=== PATIENT | female | born 1985 | race Caucasian/White ===

== ENCOUNTER 2016-07-10 16:58 | Emergency (ER) | payer OTHER ==
[2016-07-10] MEDS ORDERED: IPRATROPIUM-ALBUTEROL 3 ML NEB INHALATION STA (18:38)
[2016-07-10] MEDS ORDERED: SODIUM CHLORIDE 0.9% 1,000 ML IV ONE (18:38)
[2016-07-10] MEDS ORDERED: methylPREDNISolone SOD SUCCI 125 MG/2 ML VIAL IV STA (18:38)
[2016-07-10 19:15] LABS: Basophils # (A) 0.1 k/uL (0-0.2); Basophils % (A) 1 %; CH 31.6; CHCM 32.6; Eosinophils # (A) 0.1 k/uL (0-0.7); Eosinophils % (A) 1 %; HCT 44.2 % (34.0-46.0); HDW 2.12; HGB 14.2 gm/dL (11.4-16.0); Luc # (Auto) 0.32; Luc % (Auto) 2; Lymphocytes # (A) 4.8 k/uL (1.0-4.8); Lymphocytes % (A) 29 %; MCH 31.2 pg (25.0-35.0); MCV 97.2 fL (80.0-100.0); Mean Platelet Volume 6.7; Monocytes # (A) 0.6 k/uL (0-1.0); Monocytes % (A) 4 %; Neutrophils # (A) 10.5 k/uL (1.3-7.7); Neutrophils % (A) 64 %; RBC 4.55 m/uL (3.80-5.40); RDW 13.7 % (11.5-15.5); WBC 16.5 k/uL (3.8-10.6); WBC (Perox) 16.57
[2016-07-10 19:22] LABS: Anion Gap 11 mmol/L; Blood Urea Nitrogen 21 mg/dL (7-17); Calcium 9.5 mg/dL (8.4-10.2); Carbon Dioxide 23 mmol/L (22-30); Chloride 107 mmol/L (98-107); Glucose 93 mg/dL (74-99); Non-African American GFR(MDRD) >60 (>60 ml/min/1.73 sqM); Potassium 4.3 mmol/L (3.5-5.1); Sodium 141 mmol/L (137-145)
--- NOTE | 2016-07-10 19:44 | XR ---
EXAMINATION TYPE: XR chest 2V DATE OF EXAM: 07/10/2016 7:12 PM COMPARISON: NONE HISTORY: Cough and congestion TECHNIQUE: Frontal and lateral views of the chest are obtained. FINDINGS: There is no focal air space opacity, pleural effusion, or pneumothorax seen. The cardiac silhouette size is within normal limits. The osseous structures are intact. IMPRESSION: No acute cardiopulmonary process.
--- NOTE | 2016-07-10 20:34 | ED ---
General Adult HPI - General Chief complaint: Syncope Stated complaint: Syncope,Cough Source: patient, family Mode of arrival: wheelchair Limitations: no limitations - History of Present Illness Initial comments: 31-year-old female presenting for evaluation of 4 days of cough and shortness of breath with associated fevers chills and mild nausea and vomiting. She was seen by her primary care physician Dr. Agee who diagnosed her with pneumonia and put her on Levaquin. He also gave her a course of steroids. Patient states there was also an episode of syncope when she got up quickly from her chair and became lightheaded and fell backwards. She believes she had loss of consciousness but denies any injuries. - Related Data Home Medications Medication Instructions Recorded Confirmed Albuterol Inhaler [Ventolin Hfa 2 puff INHALATION RT-QID PRN 07/10/16 07/10/16 Inhaler] Levofloxacin [Levaquin] 500 mg PO DAILY 07/10/16 07/10/16 Levonorgestrel-Ethin Estradiol 1 tab PO DAILY 07/10/16 07/10/16 [Setlakin 0.15 mg-0.03 mg Tab] methylPREDNISolone [Medrol Dose See Taper PO DAILY 07/10/16 07/10/16 Pack] Allergies Allergy/AdvReac Type Severity Reaction Status Date / Time No Known Allergies Allergy Verified 07/10/16 19:21 Review of Systems ROS Statement: Those systems with pertinent positive or pertinent negative responses have been documented in the HPI. ROS Other: All systems not noted in ROS Statement are negative. Constitutional: Reports: fever, chills Eyes: Denies: eye pain, eye discharge ENT: Reports: congestion. Denies: ear pain, throat pain, dental pain Respiratory: Reports: cough, dyspnea, wheezes. Denies: hemoptysis, stridor Cardiovascular: Denies: chest pain, palpitations, dyspnea on exertion, orthopnea , edema, syncope Endocrine: Reports: fatigue. Denies: polydipsia, polyuria Gastrointestinal: Reports: nausea, vomiting. Denies: abdominal pain, diarrhea, constipation, hematemesis Genitourinary: Denies: urgency, dysuria Musculoskeletal: Denies: back pain, arthralgia, myalgia Skin: Denies: rash, lesions, change in color Neurological: Denies: headache, weakness Psychiatric: Denies: anxiety, depression Hematological/Lymphatic: Denies: easy bleeding, easy bruising Past Medical History Past Medical History: Asthma History of Any Multi-Drug Resistant Organisms: MRSA Date of last positivie culture/infection: THIGH MDRO Source:: 2011 Additional Past Surgical History / Comment(s): D/C Past Psychological History: No Psychological Hx Reported Smoking Status: Current every day smoker Past Alcohol Use History: Rare Past Drug Use History: None Reported General Exam Limitations: no limitations General appearance: alert, in no apparent distress Head exam: Present: atraumatic, normocephalic, normal inspection Eye exam: Present: normal appearance, PERRL, EOMI. Absent: scleral icterus, conjunctival injection, periorbital swelling ENT exam: Present: normal exam, mucous membranes moist Neck exam: Present: normal inspection. Absent: tenderness, meningismus, lymphadenopathy Respiratory exam: Present: wheezes. Absent: respiratory distress, chest wall tenderness, accessory muscle use, decreased breath sounds Cardiovascular Exam: Present: regular rate, normal rhythm, normal heart sounds. Absent: systolic murmur, diastolic murmur, rubs, gallop, clicks GI/Abdominal exam: Present: soft, normal bowel sounds. Absent: distended, tenderness, guarding, rebound, rigid Rectal exam: Present: deferred Extremities exam: Present: normal inspection, full ROM, normal capillary refill. Absent: tenderness, pedal edema, joint swelling, calf tenderness Back exam: Present: normal inspection Neurological exam: Present: alert, oriented X3, CN II-XII intact Psychiatric exam: Present: normal affect, normal mood Skin exam: Present: warm, dry, intact, normal color. Absent: rash Course Vital Signs 07/10/16 07/10/16 07/10/16 17:56 19:14 19:35 Temperature 98.7 F Pulse Rate 76 87 87 Respiratory 18 Rate Blood Pressure 127/75 O2 Sat by Pulse 98 Oximetry 07/10/16 20:45 Temperature 98.9 F Pulse Rate 89 Respiratory 16 Rate Blood Pressure 118/57 O2 Sat by Pulse 98 Oximetry EKG Findings - EKG Comments: EKG Findings:: Normal sinus rhythm with sinus arrhythmia and ventricular rate of 66, ROSALINE 132, QRS 88, QT/QTC 382/400. Medical Decision Making - Medical Decision Making 31-year-old female presented for evaluation of 4 days of cough shortness of breath fevers chills with mild nausea and vomiting. She was diagnosed with pneumonia by her primary care physician and given a prescription for Levaquin and prednisone. Upon arrival to the ED she is coughing numerous times and has wheezing bilateral lower lobes. Otherwise her vitals are normal and there are no other acute findings. Labs revealed a mild leukocytosis but chest x-ray shows no acute process. The patient was reevaluated and had resolution of her wheezing and her symptoms have improved. She was informed of these results and through shared decision making it was determined that she would be discharged with instructions to continue taking her Levaquin and prednisone and to follow-up with her primary care physician but to return to this facility if her symptoms should worsen or persist. The patient acknowledged an understanding of this information and agreed with this plan of care. - Lab Data Result diagrams: 07/10/16 18:56 07/10/16 18:56 Lab Results 07/10/16 07/10/16 07/10/16 Range/Units 18:56 18:56 18:56 WBC 16.5 H (3.8-10.6) k/uL RBC 4.55 (3.80-5.40) m/uL Hgb 14.2 (11.4-16.0) gm/dL Hct 44.2 (34.0-46.0) % MCV 97.2 (80.0-100.0) fL MCH 31.2 (25.0-35.0) pg MCHC 32.0 (31.0-37.0) g/dL RDW 13.7 (11.5-15.5) % Plt Count 357 (150-450) k/uL Neutrophils % 64 % Lymphocytes % 29 % Monocytes % 4 % Eosinophils % 1 % Basophils % 1 % Neutrophils # 10.5 H (1.3-7.7) k/uL Lymphocytes # 4.8 (1.0-4.8) k/uL Monocytes # 0.6 (0-1.0) k/uL Eosinophils # 0.1 (0-0.7) k/uL Basophils # 0.1 (0-0.2) k/uL Sodium 141 (137-145) mmol/L Potassium 4.3 (3.5-5.1) mmol/L Chloride 107 (98-107) mmol/L Carbon Dioxide 23 (22-30) mmol/L Anion Gap 11 mmol/L BUN 21 H (7-17) mg/dL Creatinine 0.76 (0.52-1.04) mg/dL Est GFR (MDRD) Af Amer >60 (>60 ml/min/1.73 sqM) Est GFR (MDRD) Non-Af >60 (>60 ml/min/1.73 sqM) Glucose 93 (74-99) mg/dL Calcium 9.5 (8.4-10.2) mg/dL Influenza Type A RNA Not Detected (Not Detectd) Influenza Type B (PCR) Not Detected (Not Detectd) Disposition Clinical Impression: URI (upper respiratory infection), Cough Disposition: HOME SELF-CARE Condition: Stable Instructions: Upper Respiratory Infection (ED), Acute Bronchitis (ED) Referrals: Rere Ornelas MD [Primary Care Provider] - 1-2 days Time of Disposition: 20:34
[2016-07-10 20:47] VITALS: BP 118/57; PULSE 89; RESP 16; TEMP 98.9
== END 2016-07-10 20:47 | disposition home or self-care (01) ==
LOC: EC 16:58
DX: J06.9 Acute upper respiratory infection, unspecified (principal); R55 Syncope and collapse; R11.2 Nausea with vomiting, unspecified; J45.909 Unspecified asthma, uncomplicated; Z87.01 Personal history of pneumonia (recurrent); F17.200 Nicotine dependence, unspecified, uncomplicated; Z79.3 Long term (current) use of hormonal contraceptives; Z79.52 Long term (current) use of systemic steroids
CPT/HCPCS: 99284; 96374; 36415; 94640; 93005; 80048; 85025; 87502; 71020; J2930

== ENCOUNTER 2016-10-28 17:46 | Emergency (ER) | payer OTHER ==
--- NOTE | 2016-10-28 18:28 | ED ---
Female Urogenital HPI - General Chief complaint: Vaginal Bleeding Stated complaint: 1st trimester bleeding Time Seen by Provider: 10/28/16 18:16 Source: patient, RN notes reviewed Mode of arrival: ambulatory Limitations: no limitations - History of Present Illness Initial comments: patient is a 31-year-old female, presents to the emergency room for evaluation of vaginal bleeding. Patient states she thinks she is about 8-10 weeks . Patient states she woke up this morning and had some vaginal spotting with lower abdominal cramping. Patient states she was passing bright red blood. Patient denies any clotting. Patient states she has been experiencing morning sickness. Patient denies any current nausea or vomiting. Patient denies fevers or chills. Patient denies chest pain or shortness of breath. Patient denies pain or burning during urination, trouble urinating or blood in urine. Patient denies any abnormal vaginal discharge or vaginal discomfort. Patient states she has yet followed up with RAIL CAR DRIVER. Patient denies any current confirmed IUP by ultrasound. Last Menstrual Period: 07/25/16 - Related Data Home Medications Medication Instructions Recorded Confirmed Niu-Usfo-Gwjcf Acid 1 cap PO DAILY 10/28/16 10/28/16 [-U Capsule (formulary)] Allergies Allergy/AdvReac Type Severity Reaction Status Date / Time No Known Allergies Allergy Verified 10/28/16 18:21 Review of Systems ROS Statement: Those systems with pertinent positive or pertinent negative responses have been documented in the HPI. ROS Other: All systems not noted in ROS Statement are negative. Past Medical History Past Medical History: Asthma Additional Past Medical History / Comment(s): HEMORRHOIDS, W/ BLEEDING. History of Any Multi-Drug Resistant Organisms: MRSA Date of last positivie culture/infection: THIGH MDRO Source:: 2011 Additional Past Surgical History / Comment(s): D&C. Past Anesthesia/Blood Transfusion Reactions: No Reported Reaction Past Psychological History: No Psychological Hx Reported Smoking Status: Current every day smoker - Past Family History Mother Family Medical History: No Reported History General Exam - General Exam Comments Initial Comments: sitting in exam room, no acute distress. Limitations: no limitations General appearance: alert, in no apparent distress Head exam: Present: atraumatic, normocephalic, normal inspection Eye exam: Present: normal appearance ENT exam: Present: normal exam Neck exam: Present: normal inspection Respiratory exam: Present: normal lung sounds bilaterally. Absent: respiratory distress Cardiovascular Exam: Present: regular rate, normal rhythm, normal heart sounds GI/Abdominal exam: Present: soft, normal bowel sounds. Absent: distended, tenderness, guarding, rebound, rigid External exam: Present: normal external exam Speculum exam: Present: vaginal discharge Expanded Speculum exam: Present: cervical OS closed Extremities exam: Present: normal inspection Back exam: Present: normal inspection Neurological exam: Present: alert, oriented X3, CN II-XII intact, normal gait Psychiatric exam: Present: normal affect, normal mood Skin exam: Present: warm, dry, intact, normal color. Absent: rash Course Vital Signs 10/28/16 17:54 Temperature 98.0 F Pulse Rate 84 Respiratory 20 Rate Blood Pressure 157/64 O2 Sat by Pulse 99 Oximetry Medical Decision Making - Medical Decision Making Patient is a 31-year-old female presents to the emergency room for evaluation of vaginal spotting. Patient is . Patient states she thinks she is about 8 weeks . Serum beta hCG 18,493.8. Patient's blood type is A positive. pole noted on ultrasound per US tech. Patient advised to follow -up with RAIL CAR DRIVER. Patient advised to return for repeat serum beta-hCG. Patient states she understands everything that was discussed with her. Return parameters discussed. Case discussed Dr. Lew. - Lab Data Lab Results 10/28/16 10/28/16 10/28/16 Range/Units 18:45 18:45 18:45 HCG, Quant 33062.8 mIU/mL Trichomonas Ag (Rapid) Negative (Negative) Blood Type A Positive Blood Type Recheck A Pos - Radiology Data Radiology results: image reviewed Disposition Clinical Impression: Threatened Disposition: HOME SELF-CARE Condition: Good Instructions: Threatened Miscarriage (ED) Additional Instructions: Refrain from sexual activity or heavy lifting for the next 7-10 days. Please return to lab for repeat beta hCG in 2 days. Please follow-up with RAIL CAR DRIVER. If any new symptom arises or symptoms worsen, return to ER as soon as possible. Referrals: Rere Ornelas MD [Primary Care Provider] - 1-2 days Preethi Read MD [STAFF PHYSICIAN] - 1-2 days
[2016-10-28 20:53] LABS: Appearance,Urine Clear (Clear); Bacteria,Urine Moderate /hpf; Bilirubin,Urine Negative (Negative); Glucose,Urine (UA) Negative (Negative); Ketones,Urine Trace (Negative); Leukocyte Esterase,Urine Trace (Negative); Mucus,Urine Rare /hpf; Nitrite,Urine Negative (Negative); PH, Urine 5.5 (5.0-8.0); Particle Count 10938; Protein,Urine Negative (Negative); RBC,Urine 1 /hpf (0-5); Specific Gravity,Urine 1.017 (1.001-1.035); UA Billing (MACRO vs. MICRO) MICRO; Urobilinogen,Urine <2.0 mg/dL (<2.0); WBC,Urine 1 /hpf (0-5)
--- NOTE | 2016-10-28 20:53 | US ---
EXAMINATION TYPE: US OB <=14 wks transvag DATE OF EXAM: 10/28/2016 COMPARISON: NONE CLINICAL HISTORY: Pain. EXAM PERFORMED: EXAM MEASUREMENTS: GESTATIONAL AGE / DATING Physician Established: not established yet Dates by LMP: unknown periods irreg. Dates by First Scan: current scan is first scan Dates by Current Scan for: (6 weeks/1 days) EDC: 06/22/17 MATERNAL ANATOMY Uterus: appears wnl Right Ovary: appears to have complex are likely corpus luteal cyst measuring Left Ovary: appears wnl Post CDS / Adnexa: appears wnl Presence of free fluid: no Presence of corpus luteal cyst: possibly on rt measuring Presence of subchorionic bleed: no GESTATION / SURVEY CRL: 0.4 cm (6 weeks/0 days) MSD: 1.5 cm (6 weeks/2 days) Yolk Sac (normal less than 6mm): 0. Heart Rate: 115 bpm Rhythm: Normal IUP: Viable IUP Date of LMP: unknown, irregular Beta HcG (if available): 68907.8 IMPRESSION: The ultrasound gestational age is 6 weeks 1 day. I see no complicating process. The PATRICA is 06/22/2017.
[2016-10-28 21:44] VITALS: BP 111/57; PULSE 72; RESP 16; TEMP 98.5
== END 2016-10-28 21:44 | disposition home or self-care (01) ==
LOC: EC 17:46
DX: O20.0 Threatened abortion (principal); O99.331 Smoking (tobacco) complicating pregnancy, first trimester; F17.200 Nicotine dependence, unspecified, uncomplicated; Z3A.01 Less than 8 weeks gestation of pregnancy; Z79.899 Other long term (current) drug therapy
CPT/HCPCS: 36415; 76801; 76817; 81001; 84702; 86900; 86901; 87070; 87205; 87491; 87591; 87808; 99284

== ENCOUNTER 2016-12-09 21:06 | Emergency (ER) | payer OTHER ==
[2016-12-09] MEDS ORDERED: SODIUM CHLORIDE 0.9% 2,000 ML IV STA (21:36)
[2016-12-09] MEDS ORDERED: METOCLOPRAMIDE 5 MG/ML 2 ML VIAL IVP STA (21:36)
--- NOTE | 2016-12-09 21:40 | ED ---
General Adult HPI - General Chief complaint: Nausea/Vomiting/Diarrhea Stated complaint: 12 wks preg/dehydrated Time Seen by Provider: 12/09/16 21:18 Source: patient, family, RN notes reviewed, old records reviewed Mode of arrival: ambulatory Limitations: no limitations - History of Present Illness Initial comments: Chief complaint and history of present illness this is a 31-year-old female here with family. The patient is a little weeks . This is confirmed that her ENTERTAINMENT MANAGER's office. The patient's having hyperemesis gravidarum. The vomit. And also keep even water down. - Related Data Home Medications Medication Instructions Recorded Confirmed Adw-Fkay-Kpeep Acid 1 cap PO DAILY 10/28/16 12/09/16 [-U Capsule (formulary)] Acetaminophen Tab [Tylenol Tab] 650 mg PO Q6H PRN 12/09/16 12/09/16 Previous Rx's Medication Instructions Recorded Ondansetron Odt [Zofran Odt] 4 mg PO Q8HR PRN #12 tab 12/10/16 Allergies Allergy/AdvReac Type Severity Reaction Status Date / Time No Known Allergies Allergy Verified 12/09/16 21:37 Review of Systems ROS Statement: Those systems with pertinent positive or pertinent negative responses have been documented in the HPI. Review of systems no headache or visual acuity changes no chest pain or shortness of breath. She is nauseated and vomiting denies any diarrhea. No blood in the vomit. No neuro deficits. All systems are reviewed Past medical problems asthma and hemorrhoids. Surgeries D&C. Family history a grandmother had breast cancer. Patient denies ALLERGIES she does smoke on occasion strongly encouraged to stop denies alcohol use occupation Works with [employer] ROS Other: All systems not noted in ROS Statement are negative. Past Medical History Past Medical History: Asthma Additional Past Medical History / Comment(s): HEMORRHOIDS, W/ BLEEDING. History of Any Multi-Drug Resistant Organisms: MRSA Date of last positivie culture/infection: THIGH MDRO Source:: 2011 Additional Past Surgical History / Comment(s): D&C. Past Anesthesia/Blood Transfusion Reactions: No Reported Reaction Past Psychological History: No Psychological Hx Reported Smoking Status: Current every day smoker Past Alcohol Use History: None Reported Past Drug Use History: None Reported - Past Family History Mother Family Medical History: No Reported History General Exam - General Exam Comments Initial Comments: General: The patient is awake and alert, patient is here because of hyperemesis gravidarum. The patient's 11 weeks . Vital signs temp 98.6 pulse 80 respiratory rate 20 pulse ox 90% room air blood pressure 146/81 Eye: Pupils are equal, , extra-ocular movements are intact; there is normal conjunctiva bilaterally. No signs of icterus. Ears, nose, mouth and throat: There are moist mucous membranes Neck: The neck is supple, Cardiovascular: There is a regular rate and rhythm. No murmur, rub or gallop is appreciated. Respiratory: Lungs are clear to auscultation, respirations are non-labored, breath sounds are equal. No wheezes, stridor, rales, or rhonchi. Gastrointestinal: Soft, non-distended, non-tender abdomen without masses or organomegaly noted. There is no rebound or guarding present. No CVA tenderness. Bowel sounds are unremarkable.nausea vomiting all day. Back: no back pain Musculoskeletal: no complaint of numbness tingling or poor balance. Full range of motion upper and lower extremities Neurological: no complaint of any neuro deficits. Skin: no complaint of any rashes. Limitations: no limitations Course Vital Signs 12/09/16 21:13 Temperature 98.6 F Pulse Rate 80 Respiratory 20 Rate Blood Pressure 146/81 O2 Sat by Pulse 98 Oximetry Medical Decision Making - Medical Decision Making medical decision-making. Patient's white count is 13.8 hemoglobin 14 hematocrit 43, potassium 3.6 with a BUN 11 creatinine 0.5 and GFR greater than 60. Glucose 92. Patient did receive a liter and half of fluid and then the IV infiltrated. The patient is taking fluid orally without problems this time. The plan the patient will be placed on Reglan suppositories. Told to call follow up with her ENTERTAINMENT MANAGER. Advance her diet. - Lab Data Result diagrams: 12/09/16 22:56 12/09/16 22:56 Lab Results 12/09/16 12/09/16 Range/Units 22:56 22:56 WBC 13.8 H (3.8-10.6) k/uL RBC 4.50 (3.80-5.40) m/uL Hgb 14.6 (11.4-16.0) gm/dL Hct 43.5 (34.0-46.0) % MCV 96.7 (80.0-100.0) fL MCH 32.5 (25.0-35.0) pg MCHC 33.6 (31.0-37.0) g/dL RDW 13.6 (11.5-15.5) % Plt Count 277 (150-450) k/uL Neutrophils % 75 % Lymphocytes % 16 % Monocytes % 4 % Eosinophils % 3 % Basophils % 1 % Neutrophils # 10.4 H (1.3-7.7) k/uL Lymphocytes # 2.2 (1.0-4.8) k/uL Monocytes # 0.6 (0-1.0) k/uL Eosinophils # 0.4 (0-0.7) k/uL Basophils # 0.1 (0-0.2) k/uL Sodium 136 L (137-145) mmol/L Potassium 3.7 (3.5-5.1) mmol/L Chloride 105 (98-107) mmol/L Carbon Dioxide 20 L (22-30) mmol/L Anion Gap 11 mmol/L BUN 11 (7-17) mg/dL Creatinine 0.50 L (0.52-1.04) mg/dL Est GFR (MDRD) Af Amer >60 (>60 ml/min/1.73 sqM) Est GFR (MDRD) Non-Af >60 (>60 ml/min/1.73 sqM) Glucose 92 (74-99) mg/dL Calcium 9.3 (8.4-10.2) mg/dL Total Bilirubin 0.3 (0.2-1.3) mg/dL AST 20 (14-36) U/L ALT 28 (9-52) U/L Alkaline Phosphatase 31 L (38-126) U/L Total Protein 7.2 (6.3-8.2) g/dL Albumin 4.2 (3.5-5.0) g/dL Disposition Clinical Impression: Hyperemesis arising during Disposition: HOME SELF-CARE Condition: Fair Instructions: Hyperemesis Gravidarum (ED) Additional Instructions: Use Reglan suppositories. Advance fluids and diet. Follow-up with your ENTERTAINMENT MANAGER Prescriptions: Ondansetron Odt [Zofran Odt] 4 mg PO Q8HR PRN #12 tab PRN Reason: Nausea Referrals: Rere Ornelas MD [Primary Care Provider] - 1-2 days Time of Disposition: 00:47
[2016-12-09 23:09] LABS: Basophils # (A) 0.1 k/uL (0-0.2); Basophils % (A) 1 %; CHCM 34.3; Eosinophils # (A) 0.4 k/uL (0-0.7); Eosinophils % (A) 3 %; HCT 43.5 % (34.0-46.0); HDW 2.05; HGB 14.6 gm/dL (11.4-16.0); Luc # (Auto) 0.22; Luc % (Auto) 2; Lymphocytes # (A) 2.2 k/uL (1.0-4.8); Lymphocytes % (A) 16 %; MCH 32.5 pg (25.0-35.0); MCHC 33.6 g/dL (31.0-37.0); MCV 96.7 fL (80.0-100.0); Monocytes # (A) 0.6 k/uL (0-1.0); Monocytes % (A) 4 %; Neutrophils # (A) 10.4 k/uL (1.3-7.7); Neutrophils % (A) 75 %; RDW 13.6 % (11.5-15.5); WBC 13.8 k/uL (3.8-10.6); WBC (Perox) 13.39
[2016-12-09 23:23] LABS: ALT 28 U/L (9-52); AST 20 U/L (14-36); Alkaline Phosphatase 31 U/L (38-126); Anion Gap 11 mmol/L; Blood Urea Nitrogen 11 mg/dL (7-17); Calcium 9.3 mg/dL (8.4-10.2); Carbon Dioxide 20 mmol/L (22-30); Chloride 105 mmol/L (98-107); Glucose 92 mg/dL (74-99); Non-African American GFR(MDRD) >60 (>60 ml/min/1.73 sqM); Potassium 3.7 mmol/L (3.5-5.1); Sodium 136 mmol/L (137-145); Total Bilirubin 0.3 mg/dL (0.2-1.3); Total Protein 7.2 g/dL (6.3-8.2)
[2016-12-10] MEDS ORDERED: ONDANSETRON ODT 4 MG TAB PO STA (00:37)
[2016-12-10] MEDS ORDERED: ONDANSETRON 4 MG ODT STARTER PACK 2 TAB BTL PO STA (00:37)
[2016-12-10 00:48] VITALS: BP 118/77; PULSE 73; RESP 18; TEMP 97.7
== END 2016-12-10 00:54 | disposition home or self-care (01) ==
LOC: EC 21:06
DX: O21.0 Mild hyperemesis gravidarum (principal); O99.331 Smoking (tobacco) complicating pregnancy, first trimester; F17.200 Nicotine dependence, unspecified, uncomplicated; Z3A.11 11 weeks gestation of pregnancy
CPT/HCPCS: 36415; 80053; 85025; 99284; 96374; 96361 ×2; J2765; S0119

== ENCOUNTER 2017-05-09 20:10 | Outpatient (CLI) | payer OTHER ==
[2017-05-09 21:18] VITALS: BP 117/55; PULSE 87; RESP 16; TEMP 97.9
--- NOTE | 2017-06-14 08:29 | P.MSEPDOC ---
Presenting Problems - Arrival Data Date of Arrival on Unit: 05/09/17 Time of Arrival on Unit: 20:15 Mode of Transport: Wheelchair - Complaint OB-Reason for Admission/Chief Complaint: Possible Onset of Labor Comment: contractions 15 mins apart and lower back pain starting at 1000 this AM Medical History - Information : 4 Para: 1 Term: 1 : 0 Abortions: Spontaneous or Elective: 2 Number of Living Children: 1 - Gestational Age Gestational Age by PATRICA (wks/days): 33 Weeks and 2 Days Review of Systems - Review of Systems Constitutional: No problems Breast: No problems ENT: No problems Cardiovascular: No problems Respiratory: No problems Gastrointestinal: No problems Genitourinary: No problems Musculoskeletal: No problems Neurological: No problems Skin: No problems Vital Signs - Temperature Temperature: 97.9 F Temperature Source: Oral - Pulse Right Sitting Brachial Pulse Rate: 87 Pulse Assessment Method: Automatic Cuff - Respirations Respiratory Rate: 16 Oxygen Delivery Method: Room Air O2 Sat by Pulse Oximetry: 98 - Blood Pressure Right Arm Sitting Blood Pressure: 117/55 Blood Pressure Mean: 75 Blood Pressure Source: Automatic Cuff Medical Screen Scoring (Pre) - Cervical Exam Dilation: 1-3 cm = 1 Membranes: Intact - Uterine Contractions Frequency: N/A Duration: N/A Intensity: N/A - Maternal Vital Signs Maternal Temperature: N/A Maternal Blood Pressure: N/A Signs of Preeclampsia: N/A Maternal Respirations: N/A - Pain Assessment Pain Location and Character: Abdomen Pain Scale Used: Numeric (1 - 10) Pain Intensity: 7 Pain Management Goal: 3 Pain Description: *Acute, Cramping Pain Radiation Location: lower back Pain Frequency: Intermittent Pain Duration: 10 Pain Duration Units: Hours Pain Behavior: Vocalization Pain Aggravating Factors: None - Maternal Trauma Maternal Trauma: N/A - Assessment Baseline FHR: 160 Heart Rate - NICHD Category: Category I (Normal) = 0 NST: Reactive Position: N/A Station: N/A - Total Score Total Score (Pre): 1 - Level of Risk Level of Risk: Low (0-5) Physician Notification (Pre) - Physician Notified Physician Notified Date: 05/09/17 Physician Notified Time: 21:06 Physician/Practitioner Notifed:: dr greenberg Spoke With: dr matamoros New Order Received: Yes - Notification Comment Comment: recheck pt's cervix an hour after initial check. if no change, discharge pt home with orders to f/u with her OB within the next 7 days. Disposition - Disposition OB Disposition: Discharge to home, Written follow up instructions reviewed Discharge Date: 05/09/17 Discharge Time: 21:40 I agree with the RN Medical Screening Exam: Yes Risk & Benefit of care provided described in d/c instruction: Yes Diagnosis: FALSE LABOR BEFORE 37 COMPLETED WEEKS OF GEST, SECOND TRI
== END 2017-05-09 21:40 | disposition home or self-care (01) ==
LOC: FBPOP 20:10
PROVIDERS: ATTEND Obstetrics & Gynecology
DX: O47.02 False labor before 37 completed weeks of gestation, second trimester (principal); Z3A.33 33 weeks gestation of pregnancy
CPT/HCPCS: 59025; G0463; 99213

== ENCOUNTER 2017-06-15 09:00 | Inpatient (IN) | payer OTHER ==
[2017-06-15] MEDS ORDERED: METHYLERGONOVINE 0.2 MG/ML 1 ML AMP IM PRN (09:25)
[2017-06-15] MEDS ORDERED: TERBUTALINE 1 MG/ML VIAL SQ PRN (09:25)
[2017-06-15] MEDS ORDERED: CARBOPROST TROMETHAMINE 250 MCG/ML 1 ML AMP IM PRN (09:25)
[2017-06-15] MEDS ORDERED: OXYTOCIN 10 UNIT/ML 1 ML VIAL IM PRN (09:25)
[2017-06-15] MEDS ORDERED: LIDOCAINE 1% (PF) 10 MG/ML (30 ML SDV) SQ PRN (09:25)
[2017-06-15] MEDS ORDERED: OXYTOCIN 20 UNITS/1000 ML NS 1,000 ML IV SCH ×2 (09:30→13:15)
[2017-06-15] MEDS: LACTATED RINGERS 1,000 ML IV SCH ×2 (09:48→10:29)
[2017-06-15 09:51] LABS: Basophils % (A) 0 %; Eosinophils # (A) 0.2 k/uL (0-0.7); Eosinophils % (A) 2 %; HCT 39.5 % (34.0-46.0); HGB 13.1 gm/dL (11.4-16.0); Lymphocytes # (A) 1.9 k/uL (1.0-4.8); Lymphocytes % (A) 17 %; MCH 30.2 pg (25.0-35.0); MCHC 33.3 g/dL (31.0-37.0); MCV 90.6 fL (80.0-100.0); Mean Platelet Volume 7.4; Monocytes # (A) 0.6 k/uL (0-1.0); Monocytes % (A) 5 %; Neutrophils # (A) 8.1 k/uL (1.3-7.7); Neutrophils % (A) 73 %; Platelet Count 322 k/uL (150-450); RBC 4.35 m/uL (3.80-5.40); RDW 13.2 % (11.5-15.5)
[2017-06-15] MEDS ORDERED: BUPIVACAINE (PF) 0.25% 30 ML VIAL ONE (10:09)
[2017-06-15] MEDS ORDERED: fentaNYL (PF) 50 MCG/ML 5 ML AMP ONE (10:09)
[2017-06-15] MEDS ORDERED: SODIUM CHLORIDE 0.9% 100 ML BAG ONE (10:09)
[2017-06-15] MEDS ORDERED: BUPIVACAINE (PF) 0.25% 25 ML, fentaNYL (PF) 200 MCG in SODIUM CHLORIDE 0.9% 71 ML EPIDURAL ONE (10:31)
[2017-06-15 10:47] VITALS: BMI 37.4
--- NOTE | 2017-06-15 10:58 | P.HPOB ---
History of Present Illness H&P Date: 06/15/17 Chief Complaint: Labor at 38-4/7 weeks' This is a 31-year-old 4 para 10-1 woman with an estimated due date of based on 8 week ultrasound. She presents at 38-4/7 weeks gestation in spontaneous active labor. She reports onset of contractions at approximately 6: 30 AM. Upon presentation to labor and delivery triage she has regularly loy and does have spontaneous rupture of membranes at approximately 09 15. Her has been uncomplicated. She does have a history of asthma. Obstetric history she has a term normal spontaneous vaginal delivery in 2009 of an 8 lbs. 15 oz. female. She has to missed AB using 2007 and 2015. Laboratory data: Blood type A positive, antibody screen negative, rubella immune , VDRL nonreactive, hep Meredith surface antigen negative, HIV negative, group B strep negative Review of Systems All systems: negative Past Medical History Past Medical History: Asthma Additional Past Medical History / Comment(s): HEMORRHOIDS, W/ BLEEDING. History of Any Multi-Drug Resistant Organisms: MRSA Date of last positivie culture/infection: THIGH MDRO Source:: 2011 Additional Past Surgical History / Comment(s): D&C. Past Anesthesia/Blood Transfusion Reactions: No Reported Reaction Past Psychological History: No Psychological Hx Reported Smoking Status: Current every day smoker Past Alcohol Use History: None Reported Additional Past Alcohol Use History / Comment(s): SMOKING SINCE 2003, 1/2 PPD. Past Drug Use History: None Reported - Past Family History Mother Family Medical History: No Reported History Medications and Allergies Home Medications Medication Instructions Recorded Confirmed Type Rtv-Yonk-Isoao Acid 1 cap PO DAILY 10/28/16 06/15/17 History [-U Capsule (formulary)] Allergies Allergy/AdvReac Type Severity Reaction Status Date / Time No Known Allergies Allergy Verified 05/09/17 21:05 Exam - Vital Signs Vital signs: Vital Signs Temp Pulse Resp BP Pulse Ox 06/15/17 09:47 97.8 F 88 18 132/74 97 06/15/17 09:08 97.8 F 88 18 132/74 Intake and Output 06/14/17 06/15/17 06/15/17 22:59 06:59 14:59 Other: Weight 102.058 kg Patient Weight 06/16/17 06:59 Weight 102.058 kg Targeted physical exam is performed. This is a visibly uncomfortable and actively laboring female. Her cervix is 6 cm dilated 90% effaced vertex in the -1 station. heart tones are reassuring by external monitoring. She is loy every 1-3 minutes. Results Result Diagrams: 06/15/17 09:45 Abnormal Lab Results - Last 24 Hours (Table) 06/15/17 Range/Units 09:45 WBC 11.0 H (3.8-10.6) k/uL Neutrophils # 8.1 H (1.3-7.7) k/uL Assessment and Plan (1) 38 weeks gestation of Current Visit: Yes Status: Acute Code(s): Z3A.38 - 38 WEEKS GESTATION OF SNOMED Code(s): 46852041 (2) Spontaneous onset of labor Current Visit: Yes Status: Acute Code(s): QRE7950 - SNOMED Code(s): 60661555 (3) Spontaneous rupture of membranes Current Visit: Yes Status: Acute Code(s): FOA1789 - SNOMED Code(s): 930666632 Plan: 31-year-old 4 para 1 woman at 38-4/7 weeks gestation admitted in spontaneous active labor with rupture of membranes. She may receive an epidural anesthetic. heart tones are currently reassuring by external monitoring. She is group B strep negative and Rh+. Anticipate normal spontaneous vaginal delivery.
[2017-06-15] MEDS ORDERED: BENZOCAINE/MENTHOL SPRAY 1 GM/SPRAY AEROSOL TOPICAL PRN (13:07)
[2017-06-15] MEDS ORDERED: diphenhydrAMINE 25 MG CAP PO PRN (13:07)
[2017-06-15] MEDS ORDERED: ACETAMINOPHEN TAB 325 MG TAB PO PRN (13:07)
[2017-06-15] MEDS ORDERED: ZOLPIDEM 5 MG TAB PO PRN (13:07)
[2017-06-15] MEDS ORDERED: diphenhydrAMINE 50 MG CAP PO PRN (13:07)
[2017-06-15] MEDS ORDERED: HYDROCORTISONE 2.5% RECTAL CREAM 30 GM TUBE RECTAL PRN (13:07)
[2017-06-15] MEDS ORDERED: SIMETHICONE 80 MG CHEWABLE PO PRN (13:07)
[2017-06-15] MEDS ORDERED: WITCH HAZEL 1 EACH MED..PAD TOPICAL PRN (13:07)
[2017-06-15] MEDS ORDERED: LANOLIN CREAM 5 GM TUBE TOPICAL PRN (13:07)
--- NOTE | 2017-06-15 13:07 | P.PROBDLV ---
Vaginal Delivery Note - . Vaginal Delivery Note: Findings: Female in the vertex right occiput anterior position with Apgars of 8 at 1 minute and 9 at 5 minutes weighing 8 lbs. 9 oz., 3895 g. Intact, three-vessel cord placenta. First-degree perineal laceration. Complications: Mild shoulder dystocia Delivery summary: This is a 31-year-old 4 para 10-1 woman who presented at 38-4/7 weeks gestation in spontaneous active labor with rupture of membranes. Labor began at approximately 06 30. Following admission she did receive an epidural anesthetic. She reached complete cervical dilation by 1235. She had stable heart tones throughout the first stage of labor. She commenced pushing and when she had progressed to she was repositioned, prepped and draped in the dorsal lithotomy position. The head delivered from the right occiput anterior position and there was immediate "turtle sign". The patient was placed in Tatyana position and the anterior shoulder which was the right shoulder was internally rotated. Suprapubic pressure was undertaken. These 2 maneuvers did free the shoulder. Duration of dystocia was less than 30 seconds. The rest the then delivered rapidly onto the field. The nose and mouth were bulb suctioned. The was placed on the maternal abdomen. The cord was clamped and cut. Apgars were 8 at 1 minute and 9 at 5 minutes. The perineum was inspected and a first-degree laceration was noted. This was infused with lidocaine and repaired with an interrupted azwbrz-ot-nnotc suture of 3-0 Vicryl. An intact, three-vessel cord placenta was then delivered after a 6 minute third stage of labor. Of note she had an approximately 20 minute second stage of labor. Following delivery of the placenta she received Pitocin. The uterus was massaged and was noted to be firm at the level of the umbilicus. The rest of the vagina was inspected and no further lacerations were noted. EBL was approximately 100 mL's. Both mother and infant were doing well post delivery in the room. Infant was noted to be vigorously moving both upper extremities equally.
[2017-06-15] MEDS: IBUPROFEN 600 MG TAB PO PRN ×2 (13:26→21:24)
[2017-06-15 15:40] VITALS: RESP 18
[2017-06-15] MEDS: SENNOSIDES-DOCUSATE SODIUM 1 EACH TAB PO SCH (21:24)
[2017-06-16 05:33] VITALS: TEMP 98.4
[2017-06-16] MEDS: SENNOSIDES-DOCUSATE SODIUM 1 EACH TAB PO SCH (08:00)
[2017-06-16] MEDS: IBUPROFEN 600 MG TAB PO PRN (08:01)
[2017-06-16 08:04] VITALS: BP 124/71; PULSE 85
--- NOTE | 2017-06-16 11:05 | P.DS ---
Providers Date of admission: 06/15/17 09:25 Expected date of discharge: 06/16/17 Attending physician: Chi Arvizu Primary care physician: Stated None - Discharge Diagnosis(es) (1) 38 weeks gestation of Current Visit: Yes Status: Acute (2) Spontaneous onset of labor Current Visit: Yes Status: Acute (3) Spontaneous rupture of membranes Current Visit: Yes Status: Acute (4) Shoulder dystocia, delivered, current hospitalization Current Visit: Yes Status: Acute (5) Normal spontaneous vaginal delivery Current Visit: Yes Status: Acute (6) Perineal laceration with delivery, first degree Current Visit: Yes Status: Acute Hospital Course: This is a 31-year-old 4 now para 20-2 woman who presented in spontaneous active labor at 38+ weeks gestation. Following admission she had spontaneous rupture of membranes. She received an epidural anesthetic. She had an unremarkable first stage of labor. With delivery she did have a mild shoulder dystocia that was resolved within 30 seconds of delivery. She had a liveborn female infant weighing 8 lbs. 9 oz. with Apgars of 8 at 1 minute and 9 at 5 minutes. There was a first-degree perineal laceration which was repaired. Her course was unremarkable. On day #1 She was able to ambulate and void, had minimal lochia and stable vital signs. She was discharged home on day #1 with routine instructions for care and follow-up Patient Condition at Discharge: Good Plan - Discharge Summary New Discharge Prescriptions: New Acetaminophen Tab [Tylenol] 650 mg PO Q4HR PRN tab PRN Reason: Mild Pain Or Fever >= 100.5 Ibuprofen [Motrin] 600 mg PO Q6HR PRN #30 tab PRN Reason: Mild Pain Or Fever >= 100.5 No Action Ety-Ioxp-Mhcka Acid [-U Capsule (formulary)] 1 cap PO DAILY Discharge Medication List Baa-Vtmi-Hwupw Acid [-U Capsule (formulary)] 1 cap PO DAILY [History] Acetaminophen Tab [Tylenol] 650 mg PO Q4HR PRN tab 06/16/17 [Rx] Ibuprofen [Motrin] 600 mg PO Q6HR PRN #30 tab 06/16/17 [Rx] Follow up Appointment(s)/Referral(s): Chi Arvizu MD [STAFF PHYSICIAN] - 6 Weeks Activity/Diet/Wound Care/Special Instructions: Follow-up in the office in 6 weeks . Call with any concerning signs or symptoms including heavy vaginal bleeding, severe abdominal pain, fever greater than 101, swelling or redness of the lower extremities, foul vaginal discharge, or signs of depression. Nothing in the vagina for 6 weeks after delivery, specifically no intercourse. Discharge Disposition: HOME SELF-CARE
== END 2017-06-16 13:54 | disposition home or self-care (01) | DRG 775 ==
LOC: FBPOP 09:00 → 4FBP 09:25
PROVIDERS: ADMIT Obstetrics & Gynecology; ATTEND Obstetrics & Gynecology
PROC: 10E0XZZ Delivery of Products of Conception, External Approach (ICD-10-PCS; principal; 2017-06-15)
PROC: 0HQ9XZZ Repair Perineum Skin, External Approach (ICD-10-PCS; 2017-06-15)
PROC: 00HU33Z Insertion of Infusion Device into Spinal Canal, Percutaneous Approach (ICD-10-PCS; 2017-06-15)
PROC: 3E0R3NZ Introduction of Analgesics, Hypnotics, Sedatives into Spinal Canal, Percutaneous Approach (ICD-10-PCS; 2017-06-15)
DX: O99.334 Smoking (tobacco) complicating childbirth (principal); F17.210 Nicotine dependence, cigarettes, uncomplicated; O70.0 First degree perineal laceration during delivery; O66.0 Obstructed labor due to shoulder dystocia; Z37.0 Single live birth; Z3A.38 38 weeks gestation of pregnancy; Z87.19 Personal history of other diseases of the digestive system; Z86.14 Personal history of Methicillin resistant Staphylococcus aureus infection
CPT/HCPCS: 84112; 85025; 88307; 99213

== ENCOUNTER → 2019-10-20 | Outpatient (CLI) | payer OTHER ==
--- NOTE | 2019-10-20 16:00 | XR ---
EXAMINATION TYPE: XR cervical spine comp DATE OF EXAM: 10/20/2019 COMPARISON: None HISTORY: Neck pain TECHNIQUE: Five-view cervical spine FINDINGS: Foramen are patent. Prevertebral space is normal. Posterior spinal lamellar line is intact. Vertebral body heights are preserved. Disc heights are preserved. There is some straightening of the cervical spine sagittal pain. The odontoid is limited with overlying maxilla. IMPRESSION: 1. No acute osseous abnormality cervical spine
== END | disposition home or self-care (01) ==
LOC: RADXRMAIN 14:52
PROVIDERS: ATTEND Internal Medicine
DX: M54.2 Cervicalgia (principal)
CPT/HCPCS: 72050

== ENCOUNTER 2020-03-06 14:34 | Emergency (ER) | payer OTHER ==
[2020-03-06 15:05] VITALS: RESP 18; TEMP 97.9
[2020-03-06] MEDS ORDERED: IBUPROFEN 600 MG TAB PO STA (15:20)
--- NOTE | 2020-03-06 15:36 | ED ---
Lower Extremity Injury HPI - General Chief Complaint: Extremity Injury, Lower Stated Complaint: Knee Injury Time Seen by Provider: 03/06/20 15:07 Source: patient Mode of arrival: wheelchair Limitations: no limitations - History of Present Illness Initial Comments: Patient is a 34-year-old female presenting to emergency Department with complaints of right knee pain after she fell approximately 2 hours prior to arrival. Patient states she tripped and fell down a couple stairs on her staircase injuring her right knee. Patient states she did not hit her head, no loss of consciousness. She denies any other injuries from this fall. She denies any previous surgeries to her right knee, she does a history of patellar subluxation. She denies any further complaints at this time. Upon arrival to the ER vitals are stable. - Related Data Home Medications Medication Instructions Recorded Confirmed Zud-Ccqd-Trcwe Acid 1 cap PO DAILY 10/28/16 06/15/17 [-U Capsule (formulary)] Previous Rx's Medication Instructions Recorded Acetaminophen Tab [Tylenol] 650 mg PO Q4HR PRN tab 06/16/17 Ibuprofen [Motrin] 600 mg PO Q6HR PRN #30 tab 06/16/17 Allergies Allergy/AdvReac Type Severity Reaction Status Date / Time No Known Allergies Allergy Verified 03/06/20 15:04 Review of Systems ROS Statement: Those systems with pertinent positive or pertinent negative responses have been documented in the HPI. ROS Other: All systems not noted in ROS Statement are negative. Past Medical History Past Medical History: Asthma Additional Past Medical History / Comment(s): HEMORRHOIDS, W/ BLEEDING. History of Any Multi-Drug Resistant Organisms: MRSA Date of last positivie culture/infection: THIGH MDRO Source:: 2011 Additional Past Surgical History / Comment(s): D&C. Past Anesthesia/Blood Transfusion Reactions: No Reported Reaction Past Psychological History: No Psychological Hx Reported Smoking Status: Never smoker Past Alcohol Use History: None Reported Past Drug Use History: None Reported - Past Family History Mother Family Medical History: No Reported History General Exam - General Exam Comments Initial Comments: GENERAL: Patient is well-developed and well-nourished. Patient is nontoxic and in no acute distress. HEAD: Atraumatic, normocephalic. EYES: Pupils equal round and reactive to light, extraocular movements intact, sclera anicteric, conjunctiva are normal. Eyelids were unremarkable. ENT: TMs normal, nares patent, oropharynx clear without exudates. Moist mucous memb ranes. NECK: Normal range of motion, supple without lymphadenopathy or JVD. LUNGS: Unlabored respirations. Breath sounds clear to auscultation bilaterally and equal. No wheezes rales or rhonchi. HEART: Regular rate and rhythm without murmurs, rubs or gallops. ABDOMEN: Soft, nontender, normoactive bowel sounds. No guarding, no rebound. No masses appreciated. : Deferred MUSCULOSKELETAL: Patient has pain with palpation of the anterior and posterior aspect the right knee, she is not able to actively flex the knee, she does have full extension. There is some moderate swelling to the anterior knee compared to the left knee. She is neurovascular intact. There is no warmth or sign of infection. The rest of her extremities are normal. No clubbing or cyanosis. NEUROLOGICAL: Patient is alert and oriented x 3. Motor and sensory are also intact. Cranial nerves II through XII grossly intact. Symmetrical smile. Normal speech, normal gait. PSYCH: Normal mood, normal affect. SKIN: Warm, Dry, normal turgor, no rashes or lesions noted. Limitations: no limitations Course Vital Signs 03/06/20 03/06/20 15:02 16:56 Temperature 97.9 F Pulse Rate 81 70 Respiratory 18 18 Rate Blood Pressure 115/75 130/78 O2 Sat by Pulse 98 98 Oximetry Medical Decision Making - Medical Decision Making Patient is a 34-year-old female here for right knee pain after she fell down a couple stairs. She does have decreased range of motion, some mild swelling to the area. X-rays reveal no acute fractures or dislocations. I do have suspicion for internal derangement of the knee. I recommended icing, comp ression with an Tan wrap, which she does have at home. She can take ibuprofen for discomfort. I will give her orthopedic referral. She is in agreement with this plan of care. She is stable for discharge. Disposition Clinical Impression: Right knee pain Disposition: HOME SELF-CARE Condition: Stable Instructions (If sedation given, give patient instructions): Knee Pain (ED) Additional Instructions: Please return to the Emergency Department if symptoms worsen or any other concerns. Continue to take ibuprofen for discomfort and swelling, ice to the area, elevation. Follow-up with orthopedics as discussed. Is patient prescribed a controlled substance at d/c from ED?: No Referrals: Rere Ornelas MD [Primary Care Provider] - 1-2 days Landon Aguilar DO [Doctor of Osteopathic Medicine] - 1-2 days
--- NOTE | 2020-03-06 16:27 | XR ---
Result: History: Pain status post fall. Comparison: None available. Technique: 3 views of the right knee. Findings: No acute fracture or dislocation is seen. The visualized osseous structures are in anatomic alignmen t. The joint spaces are preserved. There is no significant knee joint effusion. Impression: No acute osseous abnormality.
[2020-03-06 16:57] VITALS: BP 130/78; PULSE 70
== END 2020-03-06 16:58 | disposition home or self-care (01) ==
LOC: EC 14:34
DX: S89.91XA Unspecified injury of right lower leg, initial encounter (principal); W10.9XXA Fall (on) (from) unspecified stairs and steps, initial encounter
CPT/HCPCS: 99283

== ENCOUNTER 2020-04-20 09:15 | Emergency (ER) | payer OTHER ==
[2020-04-20 09:28] VITALS: BP 123/82; PULSE 81; RESP 18; TEMP 98.4
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
== END 2020-04-20 10:21 | disposition home or self-care (01) ==
LOC: EC 09:15
DX: G89.29 Other chronic pain (principal); M25.561 Pain in right knee; F17.200 Nicotine dependence, unspecified, uncomplicated; Z86.14 Personal history of Methicillin resistant Staphylococcus aureus infection; V49.40XA Driver injured in collision with unspecified motor vehicles in traffic accident, initial encounter; Y92.488 Other paved roadways as the place of occurrence of the external cause; Y93.89 Activity, other specified
CPT/HCPCS: 99284

== ENCOUNTER 2020-11-14 17:33 | Emergency (ER) | payer OTHER ==
[2020-11-14 18:07] VITALS: RESP 16; TEMP 97.8
[2020-11-14] MEDS ORDERED: KETOROLAC 15 MG/ML 1 ML VIAL IVP STA (18:18)
[2020-11-14] MEDS ORDERED: SODIUM CHLORIDE 0.9% 1,000 ML IV STA (18:18)
[2020-11-14] MEDS ORDERED: ONDANSETRON 4 MG/2 ML VIAL IVP STA (18:18)
[2020-11-14 19:09] LABS: Basophils # (A) 0.1 k/uL (0-0.2); Basophils % (A) 1 %; Eosinophils # (A) 0.4 k/uL (0-0.7); Eosinophils % (A) 4 %; HCT 45.4 % (34.0-46.0); HGB 15.4 gm/dL (11.4-16.0); Lymphocytes # (A) 2.6 k/uL (1.0-4.8); Lymphocytes % (A) 28 %; MCH 32.1 pg (25.0-35.0); MCHC 33.8 g/dL (31.0-37.0); MCV 94.9 fL (80.0-100.0); Mean Platelet Volume 7.2; Monocytes # (A) 0.6 k/uL (0-1.0); Monocytes % (A) 6 %; Neutrophils # (A) 5.5 k/uL (1.3-7.7); Neutrophils % (A) 59 %; Platelet Count 267 k/uL (150-450); RBC 4.78 m/uL (3.80-5.40); RDW 12.8 % (11.5-15.5); WBC 9.3 k/uL (3.8-10.6)
[2020-11-14 19:16] LABS: ALT 12 U/L (4-34); AST 20 U/L (14-36); African American GFR (CKD) >90 (>60 ml/min/1.73 sqM); Albumin 4.5 g/dL (3.5-5.0); Alkaline Phosphatase 37 U/L (38-126); Amylase 64 U/L (30-110); Anion Gap 10 mmol/L; Blood Urea Nitrogen 16 mg/dL (7-17); Calcium 9.5 mg/dL (8.4-10.2); Carbon Dioxide 23 mmol/L (22-30); Chloride 107 mmol/L (98-107); Glucose 99 mg/dL (74-99); Lipase 110 U/L (23-300); Non-African American GFR(CKD) >90 (>60 ml/min/1.73 sqM); Potassium 3.9 mmol/L (3.5-5.1); Sodium 140 mmol/L (137-145); Total Bilirubin 0.2 mg/dL (0.2-1.3); Total Protein 7.3 g/dL (6.3-8.2)
[2020-11-14 19:22] LABS: Amorphous Sediment,Urine Rare /hpf; Appearance,Urine Clear (Clear); Bilirubin,Urine Negative (Negative); Blood,Urine Negative (Negative); Color,Urine Yellow; Glucose,Urine (UA) Negative (Negative); Ketones,Urine Negative (Negative); Leukocyte Esterase,Urine Trace (Negative); Mucus,Urine Rare /hpf; Nitrite,Urine Negative (Negative); PH, Urine 7.5 (5.0-8.0); Protein,Urine Trace (Negative); RBC,Urine 1 /hpf (0-5); Specific Gravity,Urine 1.029 (1.001-1.035); Squamous Epithelial Cell,Urine 3 /hpf (0-4); Urobilinogen,Urine <2.0 mg/dL (<2.0); WBC,Urine 3 /hpf (0-5)
--- NOTE | 2020-11-14 19:36 | CT ---
EXAMINATION TYPE: CT abdomen pelvis w con DATE OF EXAM: 11/14/2020 COMPARISON: None HISTORY: Right flank pain with nausea. CT DLP: 1949.8 mGycm Automated exposure control for dose reduction was used. CONTRAST: Performed with IV Contrast, patient injected with 100 mL of Isovue 300. Images obtained from the diaphragm to the floor the pelvis with IV contrast. Lung bases are clear. There is no pleural effusion. Heart size is normal. There is no pericardial eff usion. Liver spleen stomach pancreas gallbladder appear normal. The bile ducts are not dilated. There is no adrenal mass. Kidneys show satisfactory contrast opacification. There is no hydronephrosi s. Ureters are not dilated. There is no retroperitoneal adenopathy. Bladder distends smoothly. There is no inguinal hernia. There is no free fluid in the pelvis. Uterus is anteverted. There is IUD in th e uterine fundus. The lumbar vertebra have normal alignment. Disc spaces are normal. There is no comp ression fracture. Posterior elements are intact. The bony pelvis is intact. Hip joints appear normal. Appendix is posterior and appears normal. There is no mesenteric edema. There is no ascites or free air. There is no bowel obstruction. IMPRESSION: Negative CT scan of the abdomen pelvis. Normal appendix.
--- NOTE | 2020-11-14 21:11 | US ---
EXAMINATION TYPE: US transvaginal DATE OF EXAM: 11/14/2020 COMPARISON: CT CLINICAL HISTORY: rule out torsion. R/O torsion per order. Back pain. Hx D and C. Mirena IUD placed 2 018. . TECHNIQUE: Transvaginal (TV). Date of LMP: 2017. EXAM MEASUREMENTS: Uterus: 8.2 x 6.3 x 4.0 cm Endometrial Stripe: 0.32 cm Right Ovary: 4.2 x 2.4 x 2.2 cm Left Ovary: 3.7 x 2.9 x 2.5 cm 1. Uterus: Anteverted Appears very heterogeneous. IUD visualized, appears to be in upper endometri um. 2. Endometrium: No abnormalities seen. 3. Right Ovary: Anechoic areas seen, largest measures: 1.0 x 1.0 x 0.9 cm. 4. Left Ovary: Anechoic areas seen, largest measures: 1.4 x 1.8 x 1.4 cm. Spectral, color and waveform doppler imaging shows arterial and venous flow within the ovaries. 5. Bilateral Adnexa: Appear to be wnl. 6. Posterior cul-de-sac: Appears to be wnl. IMPRESSION: There are simple ovarian cysts. No solid adnexal mass. Normal uterus and endometrium. IUD appears in good position. No evidence of ovarian torsion.
[2020-11-14] MEDS ORDERED: ACET/COD 300 MG/30 MG STARTER PACK 6 TAB BTL PO STA (21:26)
[2020-11-14] MEDS ORDERED: ONDANSETRON 4 MG ODT STARTER PACK 2 TAB BTL PO STA (21:26)
--- NOTE | 2020-11-14 21:27 | ED ---
Back Pain HPI - General Chief Complaint: Back Pain/Injury Stated Complaint: back pain Time Seen by Provider: 11/14/20 18:08 Source: patient Limitations: no limitations - History of Present Illness Initial Comments: Patient is a 35-year-old female that presents to the emergency department complaining of lower abdominal pain with radiation of the back. She noted that she was mildly nauseous upon arrival. She denied any intra-abdominal history or significant past history. She did report that she was diagnosed with endometriosis oligo but has IUD in place. She was in moderate amounts of discomfort and pain while sitting up in bed during the exam interview. She denied any chest pain shortness breath headache vomiting diarrhea constipation fever fatigue chills. - Related Data Home Medications Medication Instructions Recorded Confirmed levonorgestreL [Mirena] 1 device IY [id number] 04/20/20 04/20/20 Allergies Allergy/AdvReac Type Severity Reaction Status Date / Time No Known Allergies Allergy Verified 11/14/20 18:04 Review of Systems ROS Statement: Those systems with pertinent positive or pertinent negative responses have been documented in the HPI. ROS Other: All systems not noted in ROS Statement are negative. Past Medical History Past Medical History: Asthma Additional Past Medical History / Comment(s): HEMORRHOIDS History of Any Multi-Drug Resistant Organisms: MRSA Date of last positivie culture/infection: THIGH MDRO Source:: 2011 Additional Past Surgical History / Comment(s): D&C. Past Anesthesia/Blood Transfusion Reactions: No Reported Reaction Past Psychological History: No Psychological Hx Reported Smoking Status: Current every day smoker Past Alcohol Use History: None Reported Past Drug Use History: None Reported - Past Family History Mother Family Medical History: No Reported History General Exam Limitations: no limitations General appearance: alert, in no apparent distress Head exam: Present: atraumatic, normocephalic, normal inspection Eye exam: Present: normal appearance, PERRL, EOMI. Absent: scleral icterus, conjunctival injection, periorbital swelling Neck exam: Present: normal inspection Respiratory exam: Present: normal lung sounds bilaterally. Absent: respiratory distress, wheezes, rales, rhonchi, stridor Cardiovascular Exam: Present: regular rate, normal rhythm, normal heart sounds. Absent: systolic murmur, diastolic murmur, rubs, gallop, clicks GI/Abdominal exam: Present: soft, tenderness (Bilateral lower abdomen), normal bowel sounds. Absent: distended, guarding, rebound, rigid Extremities exam: Present: normal inspection, full ROM, normal capillary refill. Absent: tenderness, pedal edema, joint swelling, calf tenderness Neurological exam: Present: alert, oriented X3 Psychiatric exam: Present: normal affect, normal mood Skin exam: Present: warm, dry, intact, normal color. Absent: rash Course Vital Signs 11/14/20 18:04 Temperature 97.8 F Pulse Rate 83 Respiratory 16 Rate Blood Pressure 128/84 O2 Sat by Pulse 100 Oximetry Medical Decision Making - Medical Decision Making 35-year-old female complaining of lower abdomen pain with radiation the back. Labs, 1 L normal saline, CT of the abdomen and pelvis, 15 mg of Toradol, 4 mg of Zofran ordered. Labs unremarkable. Computed tomography scan abdomen is unremarkable for any acute process. Given the vague symptoms and negative computed tomography scan ultrasound of the pelvis was ordered. Ultrasound negative for any acute process. Patient could be extremely endometriosis pain. Case discussed with Dr. Everett, patient discharge home with follow-up to PRESCRIPTION CLERK and primary care. - Lab Data Result diagrams: 11/14/20 18:50 11/14/20 18:50 Lab Results 11/14/20 11/14/20 11/14/20 Range/Units 18:50 18:50 18:50 WBC 9.3 (3.8-10.6) k/uL RBC 4.78 (3.80-5.40) m/uL Hgb 15.4 (11.4-16.0) gm/dL Hct 45.4 (34.0-46.0) % MCV 94.9 (80.0-100.0) fL MCH 32.1 (25.0-35.0) pg MCHC 33.8 (31.0-37.0) g/dL RDW 12.8 (11.5-15.5) % Plt Count 267 (150-450) k/uL MPV 7.2 Neutrophils % 59 % Lymphocytes % 28 % Monocytes % 6 % Eosinophils % 4 % Basophils % 1 % Neutrophils # 5.5 (1.3-7.7) k/uL Lymphocytes # 2.6 (1.0-4.8) k/uL Monocytes # 0.6 (0-1.0) k/uL Eosinophils # 0.4 (0-0.7) k/uL Basophils # 0.1 (0-0.2) k/uL Sodium (137-145) mmol/L Potassium (3.5-5.1) mmol/L Chloride (98-107) mmol/L Carbon Dioxide (22-30) mmol/L Anion Gap mmol/L BUN (7-17) mg/dL Creatinine (0.52-1.04) mg/dL Est GFR (CKD-EPI)AfAm (>60 ml/min/1.73 sqM) Est GFR (CKD-EPI)NonAf (>60 ml/min/1.73 sqM) Glucose (74-99) mg/dL Plasma Lactic Acid [place] (0.7-2.0) mmol/L Calcium (8.4-10.2) mg/dL Total Bilirubin (0.2-1.3) mg/dL AST (14-36) U/L ALT (4-34) U/L Alkaline Phosphatase (38-126) U/L Total Protein (6.3-8.2) g/dL Albumin (3.5-5.0) g/dL Amylase (30-110) U/L Lipase (23-300) U/L Urine Color Yellow Urine Appearance Clear (Clear) Urine pH 7.5 (5.0-8.0) Ur Specific [place] 1.029 (1.001-1.035) Urine Protein Trace H (Negative) Urine Glucose (UA) Negative (Negative) Urine Ketones Negative (Negative) Urine Blood Negative (Negative) Urine Nitrite Negative (Negative) Urine Bilirubin Negative (Negative) Urine Urobilinogen <2.0 (<2.0) mg/dL Ur Leukocyte Esterase Trace H (Negative) Urine RBC 1 (0-5) /hpf Urine WBC 3 (0-5) /hpf Ur Squamous Epith Cells 3 (0-4) /hpf Amorphous Sediment Rare H (None) /hpf Urine Mucus Rare H (None) /hpf Urine HCG, Qual Not Detected (Not Detectd) 11/14/20 11/14/20 Range/Units 18:50 18:50 WBC (3.8-10.6) k/uL RBC (3.80-5.40) m/uL Hgb (11.4-16.0) gm/dL Hct (34.0-46.0) % MCV (80.0-100.0) fL MCH (25.0-35.0) pg MCHC (31.0-37.0) g/dL RDW (11.5-15.5) % Plt Count (150-450) k/uL MPV Neutrophils % % Lymphocytes % % Monocytes % % Eosinophils % % Basophils % % Neutrophils # (1.3-7.7) k/uL Lymphocytes # (1.0-4.8) k/uL Monocytes # (0-1.0) k/uL Eosinophils # (0-0.7) k/uL Basophils # (0-0.2) k/uL Sodium 140 (137-145) mmol/L Potassium 3.9 (3.5-5.1) mmol/L Chloride 107 (98-107) mmol/L Carbon Dioxide 23 (22-30) mmol/L Anion Gap 10 mmol/L BUN 16 (7-17) mg/dL Creatinine 0.59 (0.52-1.04) mg/dL Est GFR (CKD-EPI)AfAm >90 (>60 ml/min/1.73 sqM) Est GFR (CKD-EPI)NonAf >90 (>60 ml/min/1.73 sqM) Glucose 99 (74-99) mg/dL Plasma Lactic Acid [place] 0.8 (0.7-2.0) mmol/L Calcium 9.5 (8.4-10.2) mg/dL Total Bilirubin 0.2 (0.2-1.3) mg/dL AST 20 (14-36) U/L ALT 12 (4-34) U/L Alkaline Phosphatase 37 L (38-126) U/L Total Protein 7.3 (6.3-8.2) g/dL Albumin 4.5 (3.5-5.0) g/dL Amylase 64 (30-110) U/L Lipase 110 (23-300) U/L Urine Color Urine Appearance (Clear) Urine pH (5.0-8.0) Ur Specific [place] (1.001-1.035) Urine Protein (Negative) Urine Glucose (UA) (Negative) Urine Ketones (Negative) Urine Blood (Negative) Urine Nitrite (Negative) Urine Bilirubin (Negative) Urine Urobilinogen (<2.0) mg/dL Ur Leukocyte Esterase (Negative) Urine RBC (0-5) /hpf Urine WBC (0-5) /hpf Ur Squamous Epith Cells (0-4) /hpf Amorphous Sediment (None) /hpf Urine Mucus (None) /hpf Urine HCG, Qual (Not Detectd) - Radiology Data Radiology results: report reviewed, image reviewed Transvaginal ultrasound: There are simple ovarian cyst. No solid adnexal mass. Normal uterus and endometrium. IUD appears in good position. Scan of the abdomen and pelvis: Negative computed tomography scan of the abdomen pelvis. Normal appendix. Disposition Clinical Impression: Abdominal pain Disposition: HOME SELF-CARE Condition: Stable Instructions (If sedation given, give patient instructions): Abdominal Pain (ED) Additional Instructions: Please return to the Emergency Department if symptoms worsen or any other concerns. Follow-up with primary care and PRESCRIPTION CLERK within the next several days. Take Tylenol 3 and Zofran as prescribed. Is patient prescribed a controlled substance at d/c from ED?: No Referrals: Rere Ornelas MD [Primary Care Provider] - 1-2 days Time of Disposition: 21:27
[2020-11-14 21:28] VITALS: BP 118/77; PULSE 65
== END 2020-11-14 21:34 | disposition home or self-care (01) ==
LOC: EC 17:33
DX: R10.9 Unspecified abdominal pain (principal); F17.200 Nicotine dependence, unspecified, uncomplicated; J45.909 Unspecified asthma, uncomplicated
CPT/HCPCS: 36415; 80053; 82150; 83605; 83690; 85025; 81001; 81025; 93975; 76830; 74177; 99284; 96374; 96375; 96361 ×3; J2405; J1885; S0119; Q9967

== ENCOUNTER 2020-12-16 08:11 | Emergency (ER) | payer OTHER ==
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
[2020-12-16] MEDS ORDERED: IBUPROFEN 600 MG TAB PO STA (09:14)
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
[2020-12-16 09:40] VITALS: BP 128/74; PULSE 74; RESP 19; TEMP 98.5
== END 2020-12-16 09:40 | disposition home or self-care (01) ==
LOC: EC 08:11
DX: S16.1XXA Strain of muscle, fascia and tendon at neck level, initial encounter (principal); M25.561 Pain in right knee; J45.909 Unspecified asthma, uncomplicated; F17.200 Nicotine dependence, unspecified, uncomplicated; V49.40XA Driver injured in collision with unspecified motor vehicles in traffic accident, initial encounter; Y92.410 Unspecified street and highway as the place of occurrence of the external cause
CPT/HCPCS: 70450; 72125; 99284

== ENCOUNTER 2021-09-18 09:04 | Emergency (ER) | payer OTHER ==
[2021-09-18 09:30] VITALS: RESP 18; TEMP 98
[2021-09-18] MEDS ORDERED: KETOROLAC 15 MG/ML 1 ML VIAL IVP STA (09:45)
[2021-09-18] MEDS ORDERED: diphenhydrAMINE 50 MG/ML 1 ML VIAL IVP STA (09:45)
[2021-09-18] MEDS ORDERED: SODIUM CHLORIDE 0.9% 1,000 ML IV STA (09:45)
[2021-09-18] MEDS ORDERED: ONDANSETRON 4 MG/2 ML VIAL IVP STA (09:45)
[2021-09-18 10:19] LABS: Basophils # (A) 0.1 k/uL (0-0.2); Basophils % (A) 1 %; Eosinophils # (A) 0.5 k/uL (0-0.7); Eosinophils % (A) 7 %; HCT 46.5 % (34.0-46.0); HGB 15.3 gm/dL (11.4-16.0); Lymphocytes # (A) 2.8 k/uL (1.0-4.8); Lymphocytes % (A) 35 %; MCH 31.6 pg (25.0-35.0); MCHC 32.9 g/dL (31.0-37.0); MCV 96.1 fL (80.0-100.0); Monocytes # (A) 0.5 k/uL (0-1.0); Monocytes % (A) 6 %; Neutrophils # (A) 3.9 k/uL (1.3-7.7); Neutrophils % (A) 50 %; Platelet Count 293 k/uL (150-450); RBC 4.84 m/uL (3.80-5.40); RDW 13.7 % (11.5-15.5)
[2021-09-18 10:32] LABS: ALT 13 U/L (4-34); AST 23 U/L (14-36); African American GFR (CKD) >90 (>60 ml/min/1.73 sqM); Alkaline Phosphatase 31 U/L (38-126); Amylase 63 U/L (30-110); Anion Gap 7 mmol/L; Blood Urea Nitrogen 14 mg/dL (7-17); Calcium 8.8 mg/dL (8.4-10.2); Carbon Dioxide 22 mmol/L (22-30); Chloride 112 mmol/L (98-107); Glucose 100 mg/dL (74-99); HCG,Qualitative Serum Not Detected; Lipase 168 U/L (23-300); Non-African American GFR(CKD) >90 (>60 ml/min/1.73 sqM); Potassium 3.9 mmol/L (3.5-5.1); Sodium 141 mmol/L (137-145); Total Bilirubin 0.6 mg/dL (0.2-1.3); Total Protein 7.1 g/dL (6.3-8.2)
[2021-09-18 10:33] LABS: INR 0.9 (<1.2)
[2021-09-18 10:41] LABS: Appearance,Urine Cloudy (Clear); Bacteria,Urine Rare /hpf; Bilirubin,Urine Negative (Negative); Blood,Urine Small (Negative); Color,Urine Yellow; Glucose,Urine (UA) Negative (Negative); Ketones,Urine Negative (Negative); Leukocyte Esterase,Urine Large (Negative); Mucus,Urine Many /hpf; Nitrite,Urine Negative (Negative); Protein,Urine Trace (Negative); RBC,Urine 1 /hpf (0-5); Specific Gravity,Urine 1.027 (1.001-1.035); Squamous Epithelial Cell,Urine 33 /hpf (0-4); Urobilinogen,Urine <2.0 mg/dL (<2.0); WBC,Urine 48 /hpf (0-5)
--- NOTE | 2021-09-18 10:51 | US ---
EXAMINATION TYPE: US renals and bladder DATE OF EXAM: 09/18/2021 COMPARISON: CT dated 11/14/2020 CLINICAL HISTORY: eval for hydronephrosis. Pain EXAM MEASUREMENTS: Right Kidney: 10.3 x 4.4 x 4.0 cm Left Kidney: 9.9 x 4.9 x 4.5 cm Right Kidney: No hydronephrosis or masses seen Left Kidney: No hydronephrosis or masses seen Bladder: anechoic Bilateral Jets seen: Yes There is no evidence for hydronephrosis at this point in time. No nephrolithiasis is seen. No renal masses are identified. The urinary bladder is incompletely distended. Bilateral ureteral jets are seen. IMPRESSION: No evidence of hydronephrosis. Grossly unremarkable kidneys.
--- NOTE | 2021-09-18 11:27 | ED ---
General Adult HPI - General Chief complaint: Abdominal Pain Stated complaint: abd pain Time Seen by Provider: 09/18/21 09:32 Source: patient, RN notes reviewed, old records reviewed Mode of arrival: ambulatory Limitations: no limitations - History of Present Illness Initial comments: Patient is a 36-year-old female with past medical history remarkable for asthma who presents emergency Department complaining of abdominal pain since Saturday. This progressively worsened. States is constant. Primarily in the right lower quadrant and flank. Describes it as an achy, sharp sensation located here. Endorses nausea but no vomiting. Denies any diarrhea. Denies any urinary complains. Uncertain if she is but states she just had her IUD jimmy rachid. Denies any vaginal discharge or bleeding. Denies any fevers. No prior intra-abdominal surgery. Presents for further evaluation regarding her abdominal pain. States has gotten worse which drove her in today for evaluation. - Related Data Home Medications Medication Instructions Recorded Confirmed Albuterol Inhaler [Ventolin Hfa 1 puff INHALATION RT-Q4H PRN 09/18/21 09/18/21 Inhaler] Previous Rx's Medication Instructions Recorded Cephalexin [Keflex] 500 mg PO Q12HR 5 Days #10 cap 09/18/21 Allergies Allergy/AdvReac Type Severity Reaction Status Date / Time No Known Allergies Allergy Verified 09/18/21 10:50 Review of Systems ROS Statement: Those systems with pertinent positive or pertinent negative responses have been documented in the HPI. Review of Systems: CONST: Denies fever EYES: Denies blurry vision ENT: Denies nasal congestion C/V: Denies Chest pain RESP: Denies shortness of breath GI: Endorses abdominal pain : Denies dysuria SKIN: Denies rash. MSK: Denies joint pain. NEURO: Denies headache ROS Other: All systems not noted in ROS Statement are negative. Past Medical History Past Medical History: Asthma Additional Past Medical History / Comment(s): HEMORRHOIDS History of Any Multi-Drug Resistant Organisms: MRSA Date of last positivie culture/infection: THIGH MDRO Source:: 2011 Additional Past Surgical History / Comment(s): D&C. Past Anesthesia/Blood Transfusion Reactions: No Reported Reaction Past Psychological History: No Psychological Hx Reported Smoking Status: Current every day smoker Past Alcohol Use History: None Reported Past Drug Use History: Marijuana - Past Family History Mother Family Medical History: No Reported History General Exam - General Exam Comments Initial Comments: General: Appears in no acute distress. HEAD: Normal with no signs of head trauma. EYES: PERRLA, EOMI, conjunctiva normal, no discharge. ENT: Hearing grossly intact, normal oropharynx. RESPIRATORY: Clear breath sounds bilaterally. No wheezes, rales, or rhonchi. C/V: Regular rate and rhythm. S1 and S2 auscultated, no edema, peripheral pulses 2+ and intact throughout ABD: Soft, nondistended. Tender to palpation in the right lower quadrant. Mild right flank tenderness to palpation. No rebound tenderness. No guarding. No peritoneal signs. No CVA tenderness on percussion. EXT: Normal range of motion, no obvious deformity SKIN: No rashes or lesions observed on exposed skin. NEURO: Alert and oriented 4. Limitations: no limitations Course Vital Signs 09/18/21 09/18/21 09:25 11:56 Temperature 98.0 F Pulse Rate 85 67 Respiratory 18 18 Rate Blood Pressure 139/72 131/86 O2 Sat by Pulse 98 98 Oximetry Medical Decision Making - Medical Decision Making Based on the patient's presentation and physical exam, I'm concerned for a bowel process for current symptoms. We will obtain abdominal laboratory studies as well as imaging. She'll be symptomatically treated with IV Benadryl, Toradol, Zofran, 1 L fluid bolus. She was in agreement with this plan. Laboratory studies were remarkable for a negative test. Urinalysis is a contaminated catch. Remainder the labs are unremarkable. Renal ultrasound shows no signs of hydronephrosis.CT of the pelvis revealed no acute intra- abdominal process. Shows recurrence of the chronic hepatic hemangiomas seen on prior CTs. I discussed the results with the patient. She expressed understanding. She is feeling better. I believe it is safer to be discharged home. She was in agreement this plan. We did discuss that she has mild signs of UTI and with her having some mild suprapubic discomfort, she'll be given antibiotics. Urine cultures will also be sent. I will provide the patient with a prescription for Keflex. I instructed the patient to follow up with their PCP in the next 3 days. I explained that the patient should return to the emergency department if they experience any worsening symptoms. Strict return precautions were discussed with the patient. The patient expressed understanding of these instructions. I answered all questions that the patient had. The patient was discharged home in good condition with their prescriptions and follow up information. - Lab Data Result diagrams: 09/18/21 09:49 09/18/21 09:49 Lab Results 09/18/21 09/18/21 09/18/21 Range/Units 09:49 09:49 09:49 WBC 8.0 (3.8-10.6) k/uL RBC 4.84 (3.80-5.40) m/uL Hgb 15.3 (11.4-16.0) gm/dL Hct 46.5 H (34.0-46.0) % MCV 96.1 (80.0-100.0) fL MCH 31.6 (25.0-35.0) pg MCHC 32.9 (31.0-37.0) g/dL RDW 13.7 (11.5-15.5) % Plt Count 293 (150-450) k/uL MPV 7.0 Neutrophils % 50 % Lymphocytes % 35 % Monocytes % 6 % Eosinophils % 7 % Basophils % 1 % Neutrophils # 3.9 (1.3-7.7) k/uL Lymphocytes # 2.8 (1.0-4.8) k/uL Monocytes # 0.5 (0-1.0) k/uL Eosinophils # 0.5 (0-0.7) k/uL Basophils # 0.1 (0-0.2) k/uL PT 10.0 (9.0-12.0) sec INR 0.9 (<1.2) APTT 25.0 (22.0-30.0) sec Sodium (137-145) mmol/L Potassium (3.5-5.1) mmol/L Chloride (98-107) mmol/L Carbon Dioxide (22-30) mmol/L Anion Gap mmol/L BUN (7-17) mg/dL Creatinine (0.52-1.04) mg/dL Est GFR (CKD-EPI)AfAm (>60 ml/min/1.73 sqM) Est GFR (CKD-EPI)NonAf (>60 ml/min/1.73 sqM) Glucose (74-99) mg/dL Calcium (8.4-10.2) mg/dL Total Bilirubin (0.2-1.3) mg/dL AST (14-36) U/L ALT (4-34) U/L Alkaline Phosphatase (38-126) U/L Total Protein (6.3-8.2) g/dL Albumin (3.5-5.0) g/dL Amylase (30-110) U/L Lipase (23-300) U/L HCG, Qual Urine Color Yellow Urine Appearance Cloudy H (Clear) Urine pH 6.0 (5.0-8.0) Ur Specific [place] 1.027 (1.001-1.035) Urine Protein Trace H (Negative) Urine Glucose (UA) Negative (Negative) Urine Ketones Negative (Negative) Urine Blood Small H (Negative) Urine Nitrite Negative (Negative) Urine Bilirubin Negative (Negative) Urine Urobilinogen <2.0 (<2.0) mg/dL Ur Leukocyte Esterase Large H (Negative) Urine RBC 1 (0-5) /hpf Urine WBC 48 H (0-5) /hpf Ur Squamous Epith Cells 33 H (0-4) /hpf Urine Bacteria Rare H (None) /hpf Urine Mucus Many H (None) /hpf 09/18/21 Range/Units 09:49 WBC (3.8-10.6) k/uL RBC (3.80-5.40) m/uL Hgb (11.4-16.0) gm/dL Hct (34.0-46.0) % MCV (80.0-100.0) fL MCH (25.0-35.0) pg MCHC (31.0-37.0) g/dL RDW (11.5-15.5) % Plt Count (150-450) k/uL MPV Neutrophils % % Lymphocytes % % Monocytes % % Eosinophils % % Basophils % % Neutrophils # (1.3-7.7) k/uL Lymphocytes # (1.0-4.8) k/uL Monocytes # (0-1.0) k/uL Eosinophils # (0-0.7) k/uL Basophils # (0-0.2) k/uL PT (9.0-12.0) sec INR (<1.2) APTT (22.0-30.0) sec Sodium 141 (137-145) mmol/L Potassium 3.9 (3.5-5.1) mmol/L Chloride 112 H (98-107) mmol/L Carbon Dioxide 22 (22-30) mmol/L Anion Gap 7 mmol/L BUN 14 (7-17) mg/dL Creatinine 0.71 (0.52-1.04) mg/dL Est GFR (CKD-EPI)AfAm >90 (>60 ml/min/1.73 sqM) Est GFR (CKD-EPI)NonAf >90 (>60 ml/min/1.73 sqM) Glucose 100 H (74-99) mg/dL Calcium 8.8 (8.4-10.2) mg/dL Total Bilirubin 0.6 (0.2-1.3) mg/dL AST 23 (14-36) U/L ALT 13 (4-34) U/L Alkaline Phosphatase 31 L (38-126) U/L Total Protein 7.1 (6.3-8.2) g/dL Albumin 4.0 (3.5-5.0) g/dL Amylase 63 (30-110) U/L Lipase 168 (23-300) U/L HCG, Qual Not Detected Urine Color Urine Appearance (Clear) Urine pH (5.0-8.0) Ur Specific [place] (1.001-1.035) Urine Protein (Negative) Urine Glucose (UA) (Negative) Urine Ketones (Negative) Urine Blood (Negative) Urine Nitrite (Negative) Urine Bilirubin (Negative) Urine Urobilinogen (<2.0) mg/dL Ur Leukocyte Esterase (Negative) Urine RBC (0-5) /hpf Urine WBC (0-5) /hpf Ur Squamous Epith Cells (0-4) /hpf Urine Bacteria (None) /hpf Urine Mucus (None) /hpf Disposition Clinical Impression: Abdominal pain, UTI (urinary tract infection) Disposition: HOME SELF-CARE Condition: Good Instructions (If sedation given, give patient instructions): Abdominal Pain (ED) Prescriptions: Cephalexin [Keflex] 500 mg PO Q12HR 5 Days #10 cap Is patient prescribed a controlled substance at d/c from ED?: No Referrals: Rere Ornelas MD [Primary Care Provider] - 1-2 days Time of Disposition: 11:55
--- NOTE | 2021-09-18 11:40 | CT ---
EXAMINATION TYPE: CT abdomen pelvis w con DATE OF EXAM: 09/18/2021 COMPARISON: CT dated July 2020 HISTORY: RLQ pain CT DLP: 2098.8 mGycm Automated exposure control for dose reduction was used. TECHNIQUE: Helical acquisition of images was performed from the lung bases through the pelvis. CONTRAST: Performed without Oral Contrast and with IV Contrast, patient injected with 100 mL of Isovue 300. FINDINGS: LUNG BASES: No significant abnormality is appreciated. LIVER/GB: Right hepatic lobe segment 7 hypodensity measuring 2.2 cm with apparent progressive margina l enhancement, possibly representing a hepatic hemangioma, appreciated in 2020 CT scan. No other defi nite hepatic focal lesion. Grossly unremarkable gallbladder. PANCREAS: No significant abnormality is seen. SPLEEN: No significant abnormality is seen. ADRENALS: No significant abnormality is seen. KIDNEYS: Grossly unremarkable. FREE AIR: No free air is visualized. RETROPERITONEAL ADENOPATHY: None visualized REPRODUCTIVE ORGANS: No gross uterine or adnexal mass yet suboptimally assessed. URINARY BLADDER: Nondistended. PELVIC ADENOPATHY: No pathologically enlarged pelvic lymph nodes. Scattered subcentimeter mesenteric lymph nodes, nonspecific and appreciated previously. OSSEOUS STRUCTURES: No aggressive bone lesion. BOWEL: Unremarkable stomach, duodenum and small bowel. No gross colonic abnormality. Normal appendix . OTHER: Unremarkable abdominal aorta. No sizable ascites. Nonspecific superior retroperitoneal fat str anding. Small fat-containing umbilical hernia. IMPRESSION: No evidence of acute appendicitis. No definite acute abnormality seen in the abdomen or the pelvis. Right hepatic lobe segment 7 lesion likely representing a hepatic hemangioma, appreciated in the prev ious CT scan yet suboptimally assessed. Further elective ultrasound or MRI assessment can be consider ed. Other incidental findings as described above.
[2021-09-18 11:57] VITALS: BP 131/86; PULSE 67
== END 2021-09-18 12:12 | disposition home or self-care (01) ==
LOC: EC 09:04
DX: N39.0 Urinary tract infection, site not specified (principal); J45.909 Unspecified asthma, uncomplicated; F17.200 Nicotine dependence, unspecified, uncomplicated; F12.90 Cannabis use, unspecified, uncomplicated; Z79.51 Long term (current) use of inhaled steroids
CPT/HCPCS: 36415; 80053; 82150; 83690; 85025; 85610; 85730; 81001; 84703; 87086; 76770; 74177; 99284; 96374; 96375 ×2; 96361; J1200; J2405; J1885; Q9967

== ENCOUNTER 2023-02-14 08:11 | Emergency (ER) | payer OTHER ==
--- NOTE | 2023-02-14 09:30 | ED ---
General Adult HPI - General Chief complaint: Psychiatric Symptoms Stated complaint: mental health Time Seen by Provider: 02/14/23 08:30 Source: patient, RN notes reviewed, old records reviewed Mode of arrival: ambulatory Limitations: no limitations - History of Present Illness Initial comments: Patient is a 37-year-old female presents emergency Department complaining of suicidal ideations. Was recently diagnosed with macular degeneration. Has a history of depression. Does not take any medications or see her therapist. Since her recent diagnosis, she has been feeling increased depression, as well as suicidal ideations. States she does have a plan but is unwilling to discuss it. States she has not attempted suicide at this point. Denies any homicidal ideations, attempts, plans. Denies any visual or auditory hallucinations. Denies any drug or alcohol use. Has no other acute complaints at this time. Presents for psychiatric evaluation. - Related Data Home Medications Medication Instructions Recorded Confirmed Albuterol Inhaler [Ventolin Hfa 2 puff INHALATION RT-Q4H PRN 09/18/21 02/14/23 Inhaler] Vit C/E/Zn/Coppr/Lutein/Zeaxan 1 cap PO BID 02/14/23 02/14/23 [Preservision Areds 2 Softgel] Allergies Allergy/AdvReac Type Severity Reaction Status Date / Time hydrocortisone Allergy Rash/Hives Verified 02/14/23 13:07 [From ProctoCream-HC(with pramoxine)] pramoxine Allergy Rash/Hives Verified 02/14/23 13:07 [From ProctoCream-HC(with pramoxine)] Review of Systems ROS Statement: Those systems with pertinent positive or pertinent negative responses have been documented in the HPI. Review of Systems: CONST: Denies fever EYES: Denies blurry vision ENT: Denies nasal congestion C/V: Denies Chest pain RESP: Denies shortness of breath GI: Denies abdominal pain : Denies dysuria SKIN: Denies rash. MSK: Denies joint pain. NEURO: Denies headache PSYCH: Denies homicidal ideations/plans/attempts. Denies visual or auditory hallucinations. She endorses suicidal ideations, plan. Denies attempts. ROS Other: All systems not noted in ROS Statement are negative. Past Medical History Past Medical History: Asthma Additional Past Medical History / Comment(s): HEMORRHOIDS, macular degeneration History of Any Multi-Drug Resistant Organisms: MRSA Date of last positivie culture/infection: THIGH MDRO Source:: 2011 Additional Past Surgical History / Comment(s): D&C. Past Anesthesia/Blood Transfusion Reactions: No Reported Reaction Past Psychological History: Depression Smoking Status: Current every day smoker Past Alcohol Use History: Rare Past Drug Use History: Marijuana - Past Family History Mother Family Medical History: No Reported History General Exam - General Exam Comments Initial Comments: General: Appears in no acute distress. HEAD: Normal with no signs of head trauma. EYES: PERRLA, EOMI, conjunctiva normal, no discharge. ENT: Hearing grossly intact, normal oropharynx. RESPIRATORY: Clear breath sounds bilaterally. No wheezes, rales, or rhonchi. C/V: Regular rate and rhythm. S1 and S2 auscultated, peripheral pulses 2+ and intact throughout ABD: Abd is soft, nontender, nondistended EXT: Normal range of motion, no obvious deformity SKIN: No rashes or lesions observed on exposed skin. NEURO: Alert and oriented x 4. Limitations: no limitations Course Vital Signs 02/14/23 08:22 Temperature 97 F L Pulse Rate 80 Respiratory 18 Rate Blood Pressure 128/92 O2 Sat by Pulse 100 Oximetry Medical Decision Making - Medical Decision Making Was pt. sent in by a medical professional or institution (, PA, AIRPLANE RENTAL CLERK, urgent care, hospital, or [facility]...) When possible be specific @ -No Did you speak to anyone other than the patient for history (EMS, parent, family, police, friend...)? What history was obtained from this source @ -No Did you review nursing and triage notes (agree or disagree)? Why? @ -I reviewed and agree with nursing and triage notes Were old charts reviewed (outside hosp., previous admission, EMS record, old EKG, old radiological studies, urgent care reports/EKG's, [facility] records)? Report findings @ -Old charts reviewed Differential Diagnosis (chest pain, altered mental status, abdominal pain women, abdominal pain men, vaginal bleeding, weakness, fever, dyspnea, syncope, headache, dizziness, GI bleed, back pain, seizure, CVA, palpatations, mental health, musculoskeletal)? @ -Differential Mental Health Depression, anxiety, bipolar, psychosis, schizophrenia, borderline personality, situational depression, adjustment disorder, behavioral disorder, brain tumor, malingering, substance abuse, encephalopathy, medication reaction, dementia, hypothyroidism, degenerative neurologic disorder, lupus.... This is not meant to be all-inclusive list EKG interpreted by me (3pts min.). @ -None done X-rays interpreted by me (1pt min.). @ -None done CT interpreted by me (1pt min.). @ -None done U/S interpreted by me (1pt. min.). @ -None done What testing was considered but not performed or refused? (CT, X-rays, U/S, labs)? Why? @ -None What meds were considered but not given or refused? Why? @ -None Did you discuss the management of the patient with other professionals (professionals i.e. , PA, AIRPLANE RENTAL CLERK, lab, RT, psych nurse, adoption social worker, immigration lawyer, teacher, commanding officer garage, gearcase assembler)? Give summary @ -EPS notified of the consult Was smoking cessation discussed for >3mins.? @ -No Was critical care preformed (if so, how long)? @ -No Were there social determinants of health that impacted care today? How? (Homelessness, low income, unemployed, alcoholism, drug addiction, transportation, low edu. Level, literacy, decrease access to med. care, correction, rehab)? @ -No Was there de-escalation of care discussed even if they declined (Discuss DNR or withdrawal of care, Hospice)? DNR status @ -No What co-morbidities impacted this encounter? (DM, HTN, Smoking, COPD, CAD, Cancer, CVA, ARF, Chemo, Hep., AIDS, mental health diagnosis, sleep apnea, morbid obesity)? @ -None Was patient admitted / discharged? Hospital course, mention meds given and route, prescriptions, significant lab abnormalities, going to OR and other pertinent info. @ -Based on the patient's presentation and physical exam, presents for psychiatric evaluation. Endorses suicidal ideations. Patient placed in green down. Sitter ordered. Suicide precautions were ordered. BAT is 0. Vitals are within acceptable limits. This time patient is medically cleared for evaluation by psychiatry. Disposition is pending psychiatric evaluation. EPS evaluate the patient. Determined that she does meet inpatient criteria for admission. Clinical certificate completed by myself. Undiagnosed new problem with uncertain prognosis? @ -No Drug Therapy requiring intensive monitoring for toxicity (Heparin, Nitro, Insulin, Cardizem)? @ -No Were any procedures done? @ -No Diagnosis/symptom? @ -Encounter for psychiatric evaluation, suicidal ideation, depression Acute, or Chronic, or Acute on Chronic? @ -Acute Uncomplicated (without systemic symptoms) or Complicated (systemic symptoms)? @ -Complicated Side effects of treatment? @ -none Exacerbation, Progression, or Severe Exacerbation] @ -no Poses a threat to life or bodily function? @ -yes - Lab Data Lab Results 02/14/23 02/14/23 Range/Units 13:30 14:41 Urine HCG, Qual Not Detected (Not Detectd) Urine Opiates Screen Not Detected (NotDetected) Ur Oxycodone Screen Not Detected (NotDetected) Urine Methadone Screen Not Detected (NotDetected) Ur Propoxyphene Screen Not Detected (NotDetected) Ur Barbiturates Screen Not Detected (NotDetected) U Tricyclic Antidepress Not Detected (NotDetected) Ur Phencyclidine Scrn Not Detected (NotDetected) Ur Amphetamines Screen Not Detected (NotDetected) U Methamphetamines Scrn Not Detected (NotDetected) U Benzodiazepines Scrn Not Detected (NotDetected) Urine Cocaine Screen Not Detected (NotDetected) U Marijuana (THC) Screen Not Detected (NotDetected) Disposition Clinical Impression: Depression, Suicidal ideation, Encounter for psychological evaluation Disposition: TRANSFER TO PSYCH HOSP/UNIT Condition: Stable Referrals: None,Stated [Primary Care Provider] - 1-2 days
[2023-02-14 14:27] LABS: Amphetamine Screen,Urine Not Detected (NotDetected); Barbiturate Screen,Urine Not Detected (NotDetected); Benzodiazepines Screen,Urine Not Detected (NotDetected); Cocaine Screen,Urine Not Detected (NotDetected); Methadone Screen, Urine Not Detected (NotDetected); Opiate Screen,Urine Not Detected (NotDetected); Oxycodone Screen, Urine Not Detected (NotDetected); Phencyclidine Screen,Urine Not Detected (NotDetected); Tricyclic Antidepressant,Urine Not Detected (NotDetected); Urn Cannabinoid Scrn Not Detected (NotDetected)
[2023-02-14 16:00] LABS: Basophils # (A) 0.1 k/uL (0-0.2); Basophils % (A) 1 %; Eosinophils # (A) 0.3 k/uL (0-0.7); Eosinophils % (A) 3 %; HCT 44.7 % (34.0-46.0); HGB 14.8 gm/dL (11.4-16.0); Lymphocytes # (A) 2.6 k/uL (1.0-4.8); Lymphocytes % (A) 29 %; MCH 31.1 pg (25.0-35.0); MCHC 33.1 g/dL (31.0-37.0); MCV 94.2 fL (80.0-100.0); Mean Platelet Volume 7.4; Monocytes # (A) 0.5 k/uL (0-1.0); Monocytes % (A) 6 %; Neutrophils # (A) 5.3 k/uL (1.3-7.7); Neutrophils % (A) 59 %; Platelet Count 239 k/uL (150-450); RBC 4.75 m/uL (3.80-5.40); RDW 13.5 % (11.5-15.5)
[2023-02-14 16:14] LABS: African American GFR (CKD) >90 (>60 ml/min/1.73 sqM); Anion Gap 6 mmol/L; Blood Urea Nitrogen 10 mg/dL (7-17); Calcium 8.5 mg/dL (8.4-10.2); Carbon Dioxide 22 mmol/L (22-30); Chloride 112 mmol/L (98-107); Glucose 89 mg/dL (74-99); Non-African American GFR(CKD) >90 (>60 ml/min/1.73 sqM); Potassium 3.8 mmol/L (3.5-5.1); Sodium 140 mmol/L (137-145)
[2023-02-14 18:29] VITALS: BP 117/74; PULSE 104; RESP 20; TEMP 98.2
[2023-02-14 22:14] LABS: Amorphous Sediment,Urine Rare /hpf; Appearance,Urine Clear (Clear); Bacteria,Urine Many /hpf; Bilirubin,Urine Negative (Negative); Blood,Urine Large (Negative); Color,Urine Yellow; Glucose,Urine (UA) Negative (Negative); Granular Casts,Urine 1 /lpf (0); Ketones,Urine Negative (Negative); Leukocyte Esterase,Urine Negative (Negative); Mucus,Urine Rare /hpf; Nitrite,Urine Positive (Negative); PH, Urine 5.5 (5.0-8.0); Protein,Urine Trace (Negative); RBC,Urine 1 /hpf (0-5); Specific Gravity,Urine 1.035 (1.001-1.035); Squamous Epithelial Cell,Urine 1 /hpf (0-4); Urobilinogen,Urine <2.0 mg/dL (<2.0); WBC,Urine 10 /hpf (0-5)
== END 2023-02-14 19:02 ==
LOC: EC 08:11
DX: F59 Unspecified behavioral syndromes associated with physiological disturbances and physical factors (principal); F32.A Depression, unspecified; R45.851 Suicidal ideations; J45.909 Unspecified asthma, uncomplicated; F17.200 Nicotine dependence, unspecified, uncomplicated; F12.90 Cannabis use, unspecified, uncomplicated; Z79.899 Other long term (current) drug therapy; Z88.8 Allergy status to other drugs, medicaments and biological substances; Z20.822 Contact with and (suspected) exposure to COVID-19
CPT/HCPCS: 36415; 80048; 80306; 81001; 81025; 82075; 85025; 87635; 99285